=== PATIENT | female | born 1965 | race Caucasian/White ===

== ENCOUNTER 2017-11-13 08:01 | Day surgery (SDC) | payer OTHER ==
[~2017-11-13] VITALS: Ht 157.5 cm; Wt 85.5 kg
[2017-11-13] MEDS ORDERED: SETRALINE (09:09)
[2017-11-13] MEDS ORDERED: ASA (09:09)
[2017-11-13] MEDS ORDERED: [UNRECOGNIZED DRUG - OTHER] (09:09)
[2017-11-13] MEDS ORDERED: ATORVASTATIN (09:09)
[2017-11-13] MEDS ORDERED: LIDOCAINE 2% (SDV) 5 ML INJ ONE (09:15)
[2017-11-13] MEDS ORDERED: PROPOFOL 40 ML ONE (09:15)
[2017-11-13 09:25] VITALS: BP 117/62; PULSE 60; RESP 19
--- NOTE | 2017-11-13 10:03 | OPPN ---
Date/Time of Note Date/Time of Note DATE: 11/13/17 TIME: 10:00 Proc Note GI Procedure Date 11/13/17 Indication: screening/surveillance Pre-procedure Diagnosis screening Post-procedure Diagnosis hemorrhoids Procedure Performed: Colonoscopy Surgeon see signature line Strategic Accounts Manager none Anesthesia Type: MAC Anesthesiologist: LEANDRO ROMERO MD Tourniquet Time none EBL none Transfusion required none Biopsy 1: none Grafts/Implants none Tubes/Drains none Complication(s) none Procedure Description colonoscopy revealed hemorrhoids ANGELIA CABAN MD Nov 13, 2017 10:03
[2017-11-13] MEDS ORDERED: PROPOFOL 20 ML ONE (10:05)
[2017-11-13 10:29] VITALS: BP 116/60; RESP 18
--- NOTE | 2017-11-16 07:14 | GILP ---
DATE OF PROCEDURE: PROCEDURE: Colonoscopy. PREOPERATIVE DIAGNOSIS: Screening colonoscopy to rule out colon polyps. POSTOPERATIVE DIAGNOSES: Moderate degree of external hemorrhoids. Rest of the colon appeared cherry l, tortuous colon was noted. DESCRIPTION OF PROCEDURE: After informed written consent was obtained, the patient was asked to lie on the left lateral side. The patient was given intravenous anesthesia by anesthesiologist, Dr. Zehra madison. When the patient became somnolent, the Olympus video colonoscope was introduced into the rectum and scope was advanced all the way to the cecum. Entire colon appeared perfectly normal. No polyp s, no carcinoma or any other abnormality detected. Endoscope at this time was withdrawn. On the wa y out, further careful evaluation was carried out. Minimal internal hemorrhoids noted and moderate degree of external hemorrhoids were noted and the procedure was terminated. PLAN: Recommend repeat colonoscopy in 10 years. Dictated By: ANGELIA HIGGINBOTHAM/RUTHY Conf#: [id number] DID#: [id number]
== END 2017-11-13 11:32 | disposition home or self-care (01) ==
LOC: GIL 08:01
PROVIDERS: ATTEND Internal Medicine Gastroenterology
DX: Z12.11 Encounter for screening for malignant neoplasm of colon (principal); K64.4 Residual hemorrhoidal skin tags; E78.5 Hyperlipidemia, unspecified
CPT/HCPCS: 45378; 84703; Z7610